=== PATIENT | male | born 1980 | race Caucasian/White ===

== ENCOUNTER 2018-02-25 08:24 | Emergency (ER) | payer MEDICAID, OTHER ==
--- NOTE | 2018-02-25 09:40 | CT ---
CT OF HEAD NONCONTRAST: INDICATION: Headache. COMPARISON: 05/07/16. FINDINGS: Moderate-sized region of left frontoparietal encephalomalacia is redemonstrated, with overlying left frontal craniotomy. There is ex vacuo dilatation of the left frontal horn. No intracranial hemorrha ge, mass effect, or midline shift. There is mild scattered white matter hypoattenuation indicating g liosis. There is decreased pneumatization of the right mastoid air cells. IMPRESSION: 1. No acute intracranial hemorrhage or mass effect. 2. Grossly stable chronic findings as discussed above. POS: [facility]
[2018-02-25] MEDS ORDERED: Metoclopramide HCl 10 MG/2 ML VIAL ONE (09:43)
[2018-02-25] MEDS ORDERED: diphenhydrAMINE 50 MG/ML VIAL ONE (09:43)
[2018-02-25] MEDS ORDERED: Ketorolac Tromethamine 30 MG/ML VIAL ONE (10:41)
== END 2018-02-25 10:49 | disposition home or self-care (01) ==
LOC: ERS 08:24
DX: R51 Headache (principal); F32.9 Major depressive disorder, single episode, unspecified; F17.210 Nicotine dependence, cigarettes, uncomplicated; Z86.73 Personal history of transient ischemic attack (TIA), and cerebral infarction without residual deficits; Z79.899 Other long term (current) drug therapy
CPT/HCPCS: 70450; 96365; 96375; J1200; J1885; J2765

== ENCOUNTER 2018-03-25 13:22 | Emergency (ER) | payer OTHER ==
[2018-03-25] MEDS ORDERED: Acetaminophen 500 MG TAB ONE (14:06)
[2018-03-25] MEDS ORDERED: Metoclopramide HCl 10 MG/2 ML VIAL ONE (14:06)
[2018-03-25] MEDS ORDERED: diphenhydrAMINE 50 MG/ML VIAL ONE (14:06)
--- NOTE | 2018-03-25 14:41 | CT ---
NONCONTRAST HEAD CT: Date: 03/25/18 HISTORY: Headache. COMPARISON: 02/25/18. TECHNIQUE: A noncontrast head CT is performed from the skull base to the skull vertex. FINDINGS: No parenchymal hemorrhage or extra-axial hematoma. No midline shift. Basilar cisterns are patent. Sta ble malacic and gliotic change involving the left frontal lobe with a associated ex vacuo dilatation of the frontal horn of the left lateral ventricle. Stable changes involving the left frontal calvariu m and left temporal calvarium. Adequate aeration of the sinuses and mastoid air cells. IMPRESSION: No acute intracranial process. POS: [facility]
--- NOTE | 2018-03-28 14:42 | EKG ---
Test Reason : Blood Pressure : / mmHG Vent. Rate : 052 BPM Atrial Rate : 052 BPM P-R Int : 146 ms QRS Dur : 088 ms QT Int : 412 ms P-R-T Axes : 022 035 041 degrees QTc Int : 383 ms Sinus bradycardia with marked sinus arrhythmia Otherwise normal ECG Confirmed by SEAMUS MACHUCA, ISHAAN Sandoval ([id number]), medical transcription editor STEVEN MCCULLOUGH ([id number]) on 03/28/2018 2:42:18 PM Referred By: Confirmed By:ISHAAN WAY MD
== END 2018-03-25 16:32 | disposition home or self-care (01) ==
LOC: ERS 13:22
DX: R51 Headache (principal); G89.29 Other chronic pain; F32.9 Major depressive disorder, single episode, unspecified; Z79.899 Other long term (current) drug therapy
CPT/HCPCS: 70450; 93005; 96365; 96366; 96375; J1200; J2765

== ENCOUNTER 2018-06-22 10:47 | Emergency (ER) | payer OTHER ==
[2018-06-22] MEDS ORDERED: Ketorolac Tromethamine 60 MG/2 ML VIAL ONE (11:04)
[2018-06-22] MEDS ORDERED: Dexamethasone 10 MG/ML VIAL ONE (11:04)
[2018-06-22] MEDS ORDERED: Diazepam 5 MG TAB ONE (11:04)
== END 2018-06-22 11:19 | disposition home or self-care (01) ==
LOC: ERS 10:47
DX: M54.5 Low back pain (principal); I72.9 Aneurysm of unspecified site; F32.9 Major depressive disorder, single episode, unspecified; F17.210 Nicotine dependence, cigarettes, uncomplicated; Z86.73 Personal history of transient ischemic attack (TIA), and cerebral infarction without residual deficits; Z79.899 Other long term (current) drug therapy
CPT/HCPCS: 96372; J1100; J1885

== ENCOUNTER 2018-09-15 08:31 | Emergency (ER) | payer OTHER | END 2018-09-15 09:45 | disposition left against medical advice (07) | LOC: ERS 08:31 | DX: Z53.21 Procedure and treatment not carried out due to patient leaving prior to being seen by health care provider (principal) ==

== ENCOUNTER 2018-09-27 23:59 | Emergency (ER) | payer OTHER ==
[2018-09-28] MEDS ORDERED: Lidocaine 1% w/Epinephrine 1:100K 20 ML VIAL ONE (02:01)
[2018-09-28] MEDS ORDERED: Ibuprofen 800 MG TAB ONE (02:01)
== END 2018-09-28 02:24 | disposition home or self-care (01) ==
LOC: ERS 23:59
DX: L02.412 Cutaneous abscess of left axilla (principal); I72.9 Aneurysm of unspecified site; F32.9 Major depressive disorder, single episode, unspecified; F17.210 Nicotine dependence, cigarettes, uncomplicated
CPT/HCPCS: 10061; J2001

== ENCOUNTER 2018-10-11 08:57 | Emergency (ER) | payer OTHER ==
[2018-10-11] MEDS ORDERED: Lidocaine 1% PF 5 ML VIAL ONE (09:19)
== END 2018-10-11 09:45 | disposition home or self-care (01) ==
LOC: ERS 08:57
DX: L02.412 Cutaneous abscess of left axilla (principal); Z86.73 Personal history of transient ischemic attack (TIA), and cerebral infarction without residual deficits; F32.9 Major depressive disorder, single episode, unspecified; F17.210 Nicotine dependence, cigarettes, uncomplicated; Z79.899 Other long term (current) drug therapy
CPT/HCPCS: 10061; J2001

== ENCOUNTER 2018-10-26 18:06 | Emergency (ER) | payer OTHER ==
[2018-10-26] MEDS ORDERED: Metoclopramide HCl 10 MG/2 ML VIAL ONE (19:00)
[2018-10-26] MEDS ORDERED: Ketorolac Tromethamine 60 MG/2 ML VIAL ONE (19:00)
[2018-10-26] MEDS ORDERED: diphenhydrAMINE 50 MG/ML VIAL ONE (19:00)
[2018-10-26] MEDS ORDERED: Acetaminophen 500 MG TAB ONE (19:00)
--- NOTE | 2018-10-26 19:45 | CT ---
CT HEAD NONCONTRAST: History: Headache. Comparison: 03-25-18 FINDINGS: There is no evidence of acute intracranial hemorrhage or infarct. Post-operative changes of the left frontal calvarium with underlying encephalomalacia are similar in appearance to the prior exam. No ma ss effect or shift of midline structures. Visualized paranasal sinuses remain well aerated. IMPRESSION: Chronic type findings are stable. No acute intracranial abnormalities are demonstrated. POS: [facility]
--- NOTE | 2018-10-31 21:01 | EKG ---
Test Reason : Blood Pressure : / mmHG Vent. Rate : 069 BPM Atrial Rate : 069 BPM P-R Int : 138 ms QRS Dur : 086 ms QT Int : 366 ms P-R-T Axes : 022 031 025 degrees QTc Int : 392 ms Normal sinus rhythm ST elevation, consider early repolarization Borderline ECG Similar to 07-JUL-2014 Confirmed by RYAN HERNANDEZ DO ([id number]), newspaper copy editor STEVEN MCCULLOUGH ([id number]) on 10/31/2018 9:00:34 PM Referred By: Confirmed By:RYAN HERNANDEZ DO
== END 2018-10-26 20:14 | disposition home or self-care (01) ==
LOC: ERS 18:06
DX: R51 Headache (principal); Z86.73 Personal history of transient ischemic attack (TIA), and cerebral infarction without residual deficits; F32.9 Major depressive disorder, single episode, unspecified; F17.210 Nicotine dependence, cigarettes, uncomplicated; Z79.899 Other long term (current) drug therapy
CPT/HCPCS: 70450; 93005; 94760; 96365; 96375; J1200; J1885; J2765

== ENCOUNTER 2019-03-21 21:19 | Emergency (ER) | payer OTHER ==
--- NOTE | 2019-03-21 21:58 | CT ---
CT BRAIN NONCONTRAST: DATE: 03/21/2019 9:40 PM HISTORY: 39-year-old male with altered mental status. COMPARISON: 10/26/2018 FINDINGS: Moderately large left frontal lobe region of encephalomalacia and gliosis, with associated ex vacuo d ilation of anterior portion of left lateral ventricle, including frontal horn. Overlying left frontotemporal parietal old craniotomy changes. Mild right to left midline shift on extra-axial basis. No mass effect, midline shift, obstructive hyd rocephalus, acute intra-axial hemorrhage, or extra-axial fluid collection. Visualized portions of paranasal sinuses are grossly clear. No interval change overall. IMPRESSION: 1. 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 2. No acute intracranial findings.
[2019-03-21 22:00] LABS: #Basophils 0.2 thou/uL (0.0-0.2); #Eosinphils 0.3 thou/uL (0.0-0.7); #Lymphocytes 4.6 thou/uL (1.20-3.40); #Monocytes 0.8 thou/uL (0.11-0.59); #Neutrophils 5.7 thou/uL (1.40-6.50); %Basophils 1.4 % (0.0-1.0); %Eosinophils 2.3 % (0.0-10.0); %Lymphocytes 39.6 % (21.0-51.0); %Monocytes 7.2 % (0.0-10.0); %Neutrophils 49.5 % (42.0-75.0); Hemoglobin 13.5 g/dL (14.0-18.0); Mean Corpuscular HGB CONC 33.7 g/dL (32.0-36.0); Mean Corpuscular Hemoglobin 30.8 pg (27.0-31.0); Mean Corpuscular Volume 91.5 fL (78.0-98.0); Mean Platelet Volume 7.7 fL (7.4-10.4); Platelet Count 336 thou/uL (130-400); RBC Distribution Width 11.4 % (11.5-14.5); Red Blood Cell (RBC) Count 4.38 mill/uL (4.70-6.10); White Blood Cell (WBC) Count 11.6 thou/uL (4.8-10.8)
[2019-03-21 22:21] LABS: ALT (SGPT) Less than 7 U/L (8-55); AST (SGOT) 10 U/L (5-34); Albumin 4.3 g/dL (3.5-5.0); Alkaline Phosphatase 84 U/L (40-150); Anion Gap 12 mmol/L (10-20); BUN (Urea Nitrogen) 15 mg/dL (8.9-20.6); Bilirubin, Total 0.2 mg/dL (0.2-1.2); Calc. Creatinine Clearance 0 mL/min (70-130); Calcium 9.4 mg/dL (7.8-10.44); Carbon Dioxide 25 mmol/L (22-29); Chloride 106 mmol/L (98-107); Estimated GFR-MDRD Greater than 90; Globulin 2.7 g/dL (2.4-3.5); Glucose 126 mg/dL (70-105); Potassium 3.7 mmol/L (3.5-5.1); Sodium 139 mmol/L (136-145)
[2019-03-21 23:01] LABS: Cocaine Metabolite Screen Detected (NotDetected); Medtox Reader # READER 1
[2019-03-21 23:02] LABS: Amphetamine Detected (NotDetected); Barbiturates Screen Not Detected (NotDetected); Benzodiazepine Screen Not Detected (NotDetected); Medtox Control Line Valid? VALID (VALID); Methadone Not Detected (NotDetected); Methamphetamine Not Detected (NotDetected); Opiate Screen Not Detected (NotDetected); Oxycodone Screen Not Detected (NotDetected); Phencyclidine (PCP) Not Detected (NotDetected); THC/Cannabinoid Screen Not Detected (NotDetected); Tricyclic Screen Not Detected (NotDetected)
== END 2019-03-21 23:10 | disposition left against medical advice (07) ==
LOC: ERS 21:19
DX: R20.0 Anesthesia of skin (principal); F19.10 Other psychoactive substance abuse, uncomplicated; F17.210 Nicotine dependence, cigarettes, uncomplicated
CPT/HCPCS: 36415; 70450; 80053; 80306; 85025

== ENCOUNTER 2019-04-12 12:29 | Emergency (ER) | payer OTHER | END 2019-04-12 12:49 | disposition left against medical advice (07) | LOC: ERS 12:29 | DX: Z53.21 Procedure and treatment not carried out due to patient leaving prior to being seen by health care provider (principal) ==

== ENCOUNTER 2019-04-12 20:18 | Emergency (ER) | payer OTHER ==
[2019-04-12] MEDS ORDERED: Ketorolac Tromethamine 30 MG/ML VIAL ONE (20:53)
== END 2019-04-12 21:00 | disposition home or self-care (01) ==
LOC: ERS 20:18
DX: G89.18 Other acute postprocedural pain (principal); R10.9 Unspecified abdominal pain; R11.0 Nausea
CPT/HCPCS: 96374; J1885

== ENCOUNTER 2019-08-30 15:05 | Outpatient (CLI) | payer OTHER ==
--- NOTE | 2019-08-30 15:36 | RAD ---
LUMBAR SPINE 3 VIEWS: Date: 08/30/2019 Lateral view obtained with neutral flexion and extension. HISTORY: Lumbar pain. FINDINGS/IMPRESSION: Lumbar vertebra maintain normal height and alignment. Disc spaces are preserved. No evidence of spond ylolisthesis. Minimal degenerative osteophytes and mild facet hypertrophy noted. POS: [facility]
== END 2019-08-30 15:06 | disposition home or self-care (01) ==
LOC: RAD 15:05
PROVIDERS: ATTEND Nurse Practitioner Family
DX: M54.5 Low back pain (principal); M47.816 Spondylosis without myelopathy or radiculopathy, lumbar region; M25.78 Osteophyte, vertebrae
CPT/HCPCS: 72100

== ENCOUNTER 2019-09-12 22:46 | Emergency (ER) | payer OTHER ==
[2019-09-12 23:11] LABS: #Basophils 0.2 thou/uL (0.0-0.2); #Eosinphils 0.3 thou/uL (0.0-0.7); #Lymphocytes 3.5 thou/uL (1.20-3.40); #Neutrophils 6.8 thou/uL (1.40-6.50); %Basophils 1.4 % (0.0-1.0); %Eosinophils 2.5 % (0.0-10.0); %Lymphocytes 29.4 % (21.0-51.0); %Monocytes 8.6 % (0.0-10.0); %Neutrophils 58.1 % (42.0-75.0); Hemoglobin 13.6 g/dL (14.0-18.0); Mean Corpuscular HGB CONC 32.8 g/dL (32.0-36.0); Mean Corpuscular Hemoglobin 30.2 pg (27.0-31.0); Mean Platelet Volume 7.4 fL (7.4-10.4); Platelet Count 290 thou/uL (130-400); RBC Distribution Width 12.1 % (11.5-14.5); Red Blood Cell (RBC) Count 4.52 mill/uL (4.70-6.10); White Blood Cell (WBC) Count 11.7 thou/uL (4.8-10.8)
--- NOTE | 2019-09-12 23:23 | CT ---
CT BRAIN WITHOUT CONTRAST: HISTORY: Altered mental status FINDINGS: Moderately large left frontal lobe region of encephalomalacia and gliosis, with associated ex vacuo d ilation of anterior portion of left lateral ventricle, including frontal horn. Overlying left frontotemporal parietal old craniotomy changes. Mild right to left midline shift on extra-axial basis . No mass effect, midline shift, obstructive hydrocephalus, acute intra-axial hemorrhage, or extra-axial fluid collection. Visualized portions of paranasal sinuses are grossly clear. No interval change overall. IMPRESSION: No CT evidence of acute intracranial process.
[2019-09-12 23:36] LABS: Acetaminophen Less than 6.0 mcg/mL (10.0-30.0); Alcohol Less than 10 mg/dL (Less than 10); Salicylate Less than 8.0 mg/dL (15.0-30.0)
[2019-09-12 23:37] LABS: ALT (SGPT) 10 U/L (8-55); AST (SGOT) 15 U/L (5-34); Albumin 4.3 g/dL (3.5-5.0); Alkaline Phosphatase 76 U/L (40-110); Anion Gap 11 mmol/L (10-20); BUN (Urea Nitrogen) 16 mg/dL (8.9-20.6); Bilirubin, Total 0.2 mg/dL (0.2-1.2); Calc. Creatinine Clearance 0 mL/min (70-130); Calcium 9.3 mg/dL (7.8-10.44); Carbon Dioxide 28 mmol/L (22-29); Chloride 103 mmol/L (98-107); Estimated GFR-MDRD Greater than 90; Globulin 2.9 g/dL (2.4-3.5); Glucose 89 mg/dL (70-105); Potassium 3.5 mmol/L (3.5-5.1); Protein, Total 7.2 g/dL (6.0-8.3); Sodium 138 mmol/L (136-145)
[2019-09-13 00:08] LABS: Amphetamine Not Detected (NotDetected); Barbiturates Screen Not Detected (NotDetected); Benzodiazepine Screen Not Detected (NotDetected); Cocaine Metabolite Screen Not Detected (NotDetected); Medtox Control Line Valid? VALID (VALID); Medtox Reader # READER 1; Methadone Not Detected (NotDetected); Methamphetamine Not Detected (NotDetected); Opiate Screen Not Detected (NotDetected); Oxycodone Screen Not Detected (NotDetected); Phencyclidine (PCP) Not Detected (NotDetected); THC/Cannabinoid Screen Not Detected (NotDetected); Tricyclic Screen Detected (NotDetected)
[2019-09-13 00:24] LABS: Bilirubin Negative (Negative); Blood, Urine Negative (Negative); Clarity Clear (Clear); Glucose, Urine (Dipstick) Normal (Negative); Leukocyte Negative Leu/uL (Negative); Nitrite Negative (Negative); Protein, Urine (Dipstick) Negative (Neg-Trace); Urobilinogen Normal mg/dL (Less than 2)
== END 2019-09-13 00:45 | disposition home or self-care (01) ==
LOC: ERS 22:46
DX: R41.82 Altered mental status, unspecified (principal); F17.210 Nicotine dependence, cigarettes, uncomplicated
CPT/HCPCS: 36415; 70450; 80053; 80306; 80307; 81003; 84443; 84484; 85025; 93005

== ENCOUNTER 2019-12-30 17:31 | Emergency (ER) | payer OTHER ==
[~2019-12-30 17:31] MED LIST: Iopamidol-370 76% 500 ML 1 ML ONE
[2019-12-30] MEDS ORDERED: Metoclopramide HCl 10 MG/2 ML VIAL ONE (17:54)
[2019-12-30] MEDS ORDERED: diphenhydrAMINE 50 MG/ML VIAL ONE (17:55)
[2019-12-30 18:04] LABS: Hemoglobin 14.2 g/dL (14.0-18.0); Mean Corpuscular HGB CONC 31.3 g/dL (32.0-36.0); Mean Corpuscular Hemoglobin 30.1 pg (27.0-31.0); Mean Corpuscular Volume 96.2 fL (78.0-98.0); Mean Platelet Volume 8.1 fL (7.4-10.4); Platelet Count 348 thou/uL (130-400); RBC Distribution Width 12.2 % (11.5-14.5); White Blood Cell (WBC) Count 20.2 thou/uL (4.8-10.8)
[2019-12-30 18:22] LABS: Band 3 % (5-11); Eosinophils 1 % (0-10); Lymphocytes 36 % (21-51); MDiff Complete? YES; Monocytes 8 % (0-10); Neutrophil 51 % (42-75); Platelet Morphology Comment Appears Adequate; RBC Morphology Normal; Reactive Lymphocytes 1 % (0-10)
--- NOTE | 2019-12-30 18:37 | CT ---
CT angiogram head: 12/30/2019 COMPARISON: 09/07/2013 HISTORY: Prior history of intracranial aneurysm, current complaint of headache TECHNIQUE: Axial CT imaging at 1.25 mm intervals from vertex through skull base with IV contrast usin g CT angiogram protocol with coronal and sagittal 3-D reformatted imaging FINDINGS: Imaged paranasal sinuses and mastoid air cells well-aerated. Stable left frontal craniotomy changes. Stable left frontal encephalomalacia. Distal right vertebral artery is hypoplastic and patent. Dominant left vertebral artery demonstrating distal patency. Basilar artery and its branches are patent with no saccular aneurysm, high-grade stenosis, or vascular occlusion involving the posterior circulation. The M1 segment, MCA bifurcation, A1 segment, distal NEIL branches, and distal MCA branches appear penny sly unremarkable. No saccular aneurysm, high-grade stenosis, or vascular occlusion of the anterior circulation. IMPRESSION: Stable CT angiogram of the head-no acute findings.
[2019-12-30 20:11] LABS: ALT (SGPT) 35 U/L (8-55); AST (SGOT) 41 U/L (5-34); Albumin 4.6 g/dL (3.5-5.0); Alkaline Phosphatase 67 U/L (40-110); Anion Gap 12 mmol/L (10-20); BUN (Urea Nitrogen) 11 mg/dL (8.9-20.6); Bilirubin, Total 0.2 mg/dL (0.2-1.2); Calc. Creatinine Clearance 0 mL/min (70-130); Carbon Dioxide 30 mmol/L (22-29); Chloride 103 mmol/L (98-107); Estimated GFR-MDRD 83; Globulin 2.9 g/dL (2.4-3.5); Glucose 95 mg/dL (70-105); Potassium 3.8 mmol/L (3.5-5.1); Protein, Total 7.5 g/dL (6.0-8.3); Sodium 141 mmol/L (136-145)
--- NOTE | 2019-12-30 20:25 | CT ---
CT OF BRAIN PERFORMED WITHOUT CONTRAST ENHANCEMENT: 12/30/19 HISTORY: Patient has history of a brain aneurysm now with severe headache. COMPARISON: 09/12/19 exam. There is postoperative changes with left frontal craniotomy change and underlying enceph alomalacia change with ex vacuo dilatation of the frontal horn of the left lateral ventricle. There i s no hemorrhage or mass effect. Mastoid air cells and visualized sinuses are clear. IMPRESSION: No acute intracranial abnormalities. POS: [facility]
[2019-12-30 20:28] LABS: Amphetamine Not Detected (NotDetected); Barbiturates Screen Detected (NotDetected); Benzodiazepine Screen Not Detected (NotDetected); Cocaine Metabolite Screen Not Detected (NotDetected); Medtox Control Line Valid? VALID (VALID); Medtox Reader # READER 4; Methadone Not Detected (NotDetected); Methamphetamine Not Detected (NotDetected); Opiate Screen Not Detected (NotDetected); Oxycodone Screen Not Detected (NotDetected); Phencyclidine (PCP) Not Detected (NotDetected); THC/Cannabinoid Screen Detected (NotDetected); Tricyclic Screen Not Detected (NotDetected)
== END 2019-12-30 20:58 | disposition home or self-care (01) ==
LOC: ERS 17:31
DX: R51 Headache (principal); R11.2 Nausea with vomiting, unspecified; F17.210 Nicotine dependence, cigarettes, uncomplicated; G43.909 Migraine, unspecified, not intractable, without status migrainosus; Z79.899 Other long term (current) drug therapy
CPT/HCPCS: 70450; 70496; 80053; 80306; 85025; 85652; 86140; 96361; 96374; 96375; J1200; J2765; Q9967

== ENCOUNTER 2020-01-06 03:05 | Emergency (ER) | payer OTHER ==
[2020-01-06] MEDS ORDERED: diphenhydrAMINE 50 MG/ML VIAL ONE (03:24)
[2020-01-06] MEDS ORDERED: Metoclopramide HCl 10 MG/2 ML VIAL ONE (03:24)
== END 2020-01-06 04:41 | disposition home or self-care (01) ==
LOC: ERS 03:05
DX: R51 Headache (principal); F17.210 Nicotine dependence, cigarettes, uncomplicated; Z79.899 Other long term (current) drug therapy
CPT/HCPCS: 96365; 96375; J1200; J2765

== ENCOUNTER 2020-01-10 03:00 | Emergency (ER) | payer OTHER ==
[2020-01-10] MEDS ORDERED: Ketorolac Tromethamine 30 MG/ML VIAL ONE (03:38)
[2020-01-10] MEDS ORDERED: Metoclopramide HCl 10 MG/2 ML VIAL ONE (03:38)
== END 2020-01-10 05:11 | disposition home or self-care (01) ==
LOC: ERS 03:00
DX: G43.909 Migraine, unspecified, not intractable, without status migrainosus (principal); F17.210 Nicotine dependence, cigarettes, uncomplicated; Z79.899 Other long term (current) drug therapy
CPT/HCPCS: 96365; 96375; J1885; J2765

== ENCOUNTER 2020-04-23 10:37 | Emergency (ER) | payer OTHER ==
[2020-04-23] MEDS ORDERED: Ketorolac Tromethamine 30 MG/ML VIAL ONE (13:25)
== END 2020-04-23 14:26 | disposition home or self-care (01) ==
LOC: ERS 10:37
DX: M54.5 Low back pain (principal); G43.909 Migraine, unspecified, not intractable, without status migrainosus; Z87.891 Personal history of nicotine dependence; Z79.899 Other long term (current) drug therapy; X50.9XXA Other and unspecified overexertion or strenuous movements or postures, initial encounter; Y92.009 Unspecified place in unspecified non-institutional (private) residence as the place of occurrence of the external cause
CPT/HCPCS: 96372; 99283; J1885

== ENCOUNTER 2021-03-26 10:45 | Emergency (ER) | payer OTHER ==
[2021-03-26] MEDS ORDERED: Ketorolac Tromethamine 30 MG/ML VIAL ONE ×2 (11:41)
== END 2021-03-26 12:16 | disposition home or self-care (01) ==
LOC: ERS 10:45
DX: M54.5 Low back pain (principal); M79.651 Pain in right thigh; F17.210 Nicotine dependence, cigarettes, uncomplicated
CPT/HCPCS: 96372; 99283; J1885

== ENCOUNTER 2021-06-08 03:56 | Emergency (ER) | payer OTHER ==
[2021-06-08] MEDS ORDERED: Metoclopramide 10 MG/10 ML UDCUP ONE (04:13)
[2021-06-08] MEDS ORDERED: Dexamethasone 10 MG/ML VIAL ONE (04:13)
[2021-06-08] MEDS ORDERED: Ketorolac Tromethamine 30 MG/ML VIAL ONE (04:13)
[2021-06-08] MEDS ORDERED: Metoclopramide HCl 10 MG/2 ML VIAL ONE (04:14)
== END 2021-06-08 05:15 | disposition home or self-care (01) ==
LOC: ERS 03:56
DX: G43.909 Migraine, unspecified, not intractable, without status migrainosus (principal); F17.200 Nicotine dependence, unspecified, uncomplicated; R56.9 Unspecified convulsions; Z79.899 Other long term (current) drug therapy
CPT/HCPCS: 96374; 96375; J1100; J1885; J2765

== ENCOUNTER 2021-06-12 03:50 | Emergency (ER) | payer OTHER ==
[2021-06-12] MEDS ORDERED: diphenhydrAMINE 50 MG/ML VIAL ONE (04:04)
[2021-06-12] MEDS ORDERED: Acetaminophen 500 MG TAB ONE (04:04)
[2021-06-12] MEDS ORDERED: Metoclopramide HCl 10 MG/2 ML VIAL ONE (04:04)
[2021-06-12] MEDS ORDERED: Ketorolac Tromethamine 30 MG/ML VIAL ONE (04:04)
== END 2021-06-12 05:10 | disposition home or self-care (01) ==
LOC: ERS 03:50
DX: R51.9 Headache, unspecified (principal); F17.200 Nicotine dependence, unspecified, uncomplicated; Z79.899 Other long term (current) drug therapy
CPT/HCPCS: 96374; 96375; J1200; J1885; J2765

== ENCOUNTER 2021-06-15 02:21 | Emergency (ER) | payer OTHER ==
[2021-06-15 03:01] LABS: #Basophils 0.1 thou/uL (0.0-0.2); #Eosinphils 0.2 thou/uL (0.0-0.7); #Lymphocytes 3.4 thou/uL (1.20-3.40); #Monocytes 1.5 thou/uL (0.11-0.59); #Neutrophils 12.8 thou/uL (1.40-6.50); %Basophils 0.6 % (0.0-1.0); %Lymphocytes 18.9 % (21.0-51.0); %Monocytes 8.4 % (0.0-10.0); %Neutrophils 71.1 % (42.0-75.0); Hemoglobin 14.6 g/dL (14.0-18.0); Mean Corpuscular HGB CONC 32.1 g/dL (32.0-36.0); Mean Corpuscular Hemoglobin 28.4 pg (27.0-31.0); Mean Corpuscular Volume 88.6 fL (78.0-98.0); Platelet Count 355 thou/uL (130-400); RBC Distribution Width 15.6 % (11.5-14.5); Red Blood Cell (RBC) Count 5.15 mill/uL (4.70-6.10)
[2021-06-15 03:21] LABS: ALT (SGPT) 29 U/L (8-55); AST (SGOT) 26 U/L (5-34); Albumin 4.2 g/dL (3.5-5.0); Alkaline Phosphatase 77 U/L (40-110); Anion Gap 12 mmol/L (10-20); BUN (Urea Nitrogen) 8 mg/dL (8.9-20.6); Bilirubin, Total 0.2 mg/dL (0.2-1.2); Calc. Creatinine Clearance 0 mL/min (70-130); Calcium 9.4 mg/dL (7.8-10.44); Carbon Dioxide 25 mmol/L (22-29); Chloride 104 mmol/L (98-107); Globulin 3.4 g/dL (2.4-3.5); Glucose 109 mg/dL (70-105); Potassium 3.5 mmol/L (3.5-5.1); Protein, Total 7.6 g/dL (6.0-8.3); Sodium 137 mmol/L (136-145)
== END 2021-06-15 02:50 | disposition left against medical advice (07) ==
LOC: ERS 02:21
DX: R51.9 Headache, unspecified (principal); F17.210 Nicotine dependence, cigarettes, uncomplicated
CPT/HCPCS: 80053; 85025; 99283

== ENCOUNTER 2021-07-06 15:47 | Emergency (ER) | payer OTHER ==
[2021-07-06] MEDS ORDERED: Acetaminophen 500 MG TAB ONE (17:49)
[2021-07-06] MEDS ORDERED: Ketorolac Tromethamine 30 MG/ML VIAL ONE (17:49)
[2021-07-06] MEDS ORDERED: Prochlorperazine 10 MG/2 ML VIAL ONE (17:49)
[2021-07-06] MEDS ORDERED: diphenhydrAMINE 50 MG/ML VIAL ONE (17:49)
== END 2021-07-06 19:53 | disposition home or self-care (01) ==
LOC: ERS 15:47
DX: G43.909 Migraine, unspecified, not intractable, without status migrainosus (principal); F17.210 Nicotine dependence, cigarettes, uncomplicated
CPT/HCPCS: 96365; 96375; J0780; J1200; J1885

== ENCOUNTER 2021-11-09 07:36 | Observation (INO) | payer OTHER ==
[2021-11-09] MEDS ORDERED: Fentanyl 100 MCG/2 ML VIAL ONE (07:53)
[2021-11-09] MEDS ORDERED: diphenhydrAMINE 50 MG/ML VIAL ONE (07:53)
[2021-11-09] MEDS ORDERED: Metoclopramide HCl 10 MG/2 ML VIAL ONE (07:53)
[2021-11-09] MEDS ORDERED: Dexamethasone 10 MG/ML VIAL ONE (07:53)
[2021-11-09] MEDS ORDERED: Ketorolac Tromethamine 30 MG/ML VIAL ONE (07:56)
[2021-11-09 08:14] LABS: Hemoglobin 14.4 g/dL (14.0-18.0); Mean Corpuscular HGB CONC 32.1 g/dL (32.0-36.0); Mean Corpuscular Hemoglobin 32.6 pg (27.0-31.0); Platelet Count 543 thou/uL (130-400); RBC Distribution Width 12.7 % (11.5-14.5); Red Blood Cell (RBC) Count 4.42 mill/uL (4.70-6.10); White Blood Cell (WBC) Count 15.3 thou/uL (4.8-10.8)
[2021-11-09 08:29] LABS: ALT (SGPT) 13 U/L (8-55); AST (SGOT) 17 U/L (5-34); Albumin 4.7 g/dL (3.5-5.0); Alkaline Phosphatase 72 U/L (40-110); Anion Gap 16 mmol/L (10-20); BUN (Urea Nitrogen) 6 mg/dL (8.9-20.6); Bilirubin, Total Less than 0.2 mg/dL (0.2-1.2); CK (CPK) 73 U/L (30-200); Calc. Creatinine Clearance 0 mL/min (70-130); Calcium 9.3 mg/dL (7.8-10.44); Carbon Dioxide 21 mmol/L (22-29); Chloride 108 mmol/L (98-107); Globulin 3.4 g/dL (2.4-3.5); Glucose 116 mg/dL (70-105); Potassium 3.6 mmol/L (3.5-5.1); Protein, Total 8.1 g/dL (6.0-8.3); Sodium 141 mmol/L (136-145)
[2021-11-09 08:30] LABS: Acetaminophen Less than 10.0 mcg/mL (10.0-30.0); Alcohol 66 mg/dL (Less than 10); Salicylate Less than 8.0 mg/dL (15.0-30.0)
[2021-11-09 08:31] LABS: MDiff Complete? YES
[2021-11-09 08:32] LABS: Eosinophils 1 % (0-10); Lymphocytes 33 % (21-51); Macrocytosis SLIGHT = 6-15 cells (100X) (0-5/hpf); Monocytes 6 % (0-10); Neutrophil 58 % (42-75); Platelet Morphology Comment Appears Increased; Polychromasia SLIGHT = 2-3 cells (100X) (0-2/hpf); Reactive Lymphocytes 2 % (0-10)
[2021-11-09 09:23] LABS: Bilirubin Negative (Negative); Blood, Urine Negative (Negative); Clarity Clear (Clear); Glucose, Urine (Dipstick) 150 mg/dL (Negative); Ketone, Urine Trace mg/dL (Negative); Leukocyte Negative Leu/uL (Negative); Nitrite Negative (Negative); Protein, Urine (Dipstick) 10 mg/dL (Neg-Trace); Specific Gravity, Urine 1.027 (1.002-1.036); Urobilinogen Normal mg/dL (Less than 2); pH, Urine 5.5 (5.0-9.0)
[2021-11-09] MEDS ORDERED: Magnesium 2 GM/50 ML BAG (IN WATER) ONE (09:49)
[2021-11-09] MEDS ORDERED: Ondansetron PF 4 MG/2 ML Vial IVP PRN (10:27)
[2021-11-09] MEDS ORDERED: Guaifenesin DM 100-10/5 ML UDCUP PO PRN (10:27)
[2021-11-09] MEDS ORDERED: Senokot S 8.6-50 MG TAB PO PRN (10:27)
[2021-11-09] MEDS ORDERED: Lorazepam 0.5 MG TAB PO PRN (10:54)
[2021-11-09] MEDS: Nicotine 14 MG PATCH TD SCH (12:13)
[2021-11-09] MEDS: Sodium Chloride 0.9% 1,000 ML IV SCH ×2 (12:14→23:31)
[2021-11-09] MEDS: HYDROcodone/Acetaminophen 5/325 mg Tablet PO PRN ×3 (12:17→22:49)
[2021-11-09] MEDS: Fioricet 325/50/40 mg Tablet PO PRN ×2 (16:14→20:08)
[2021-11-09 16:18] VITALS: BMI 23.0
[2021-11-09] MEDS: levETIRAcetam 500 MG TAB PO SCH (20:08)
[2021-11-10] MEDS: Sodium Chloride 0.9% 1,000 ML IV SCH (00:39)
[2021-11-10] MEDS: Fioricet 325/50/40 mg Tablet PO PRN ×3 (02:02→13:10)
[2021-11-10] MEDS ORDERED: Melatonin 3 MG TAB PO SCH (02:15)
[2021-11-10 06:31] LABS: Anion Gap 11 mmol/L (10-20); BUN (Urea Nitrogen) 10 mg/dL (8.9-20.6); Calc. Creatinine Clearance 151 mL/min (70-130); Carbon Dioxide 23 mmol/L (22-29); Chloride 105 mmol/L (98-107); Glucose 146 mg/dL (70-105); Potassium 3.7 mmol/L (3.5-5.1); Sodium 135 mmol/L (136-145)
[2021-11-10 06:43] LABS: Band 2 % (5-11); Hemoglobin 12.1 g/dL (14.0-18.0); Lymphocytes 12 % (21-51); MDiff Complete? YES; Mean Corpuscular HGB CONC 31.5 g/dL (32.0-36.0); Mean Corpuscular Hemoglobin 32.3 pg (27.0-31.0); Mean Platelet Volume 7.3 fL (7.4-10.4); Monocytes 3 % (0-10); Neutrophil 83 % (42-75); Platelet Count 405 thou/uL (130-400); RBC Distribution Width 12.5 % (11.5-14.5); Red Blood Cell (RBC) Count 3.73 mill/uL (4.70-6.10); White Blood Cell (WBC) Count 21.3 thou/uL (4.8-10.8)
[2021-11-10] MEDS: levETIRAcetam 500 MG TAB PO SCH (08:39)
[2021-11-10] MEDS ORDERED: Thiamine 100 MG TAB PO SCH (09:00)
[2021-11-10] MEDS ORDERED: Folic Acid 1 MG TAB PO SCH (09:00)
[2021-11-10] MEDS ORDERED: Multivitamin W/ Minerals 1 TAB PO SCH (09:00)
[2021-11-10] MEDS: HYDROcodone/Acetaminophen 5/325 mg Tablet PO PRN (11:47)
[2021-11-10] MEDS: Nicotine 14 MG PATCH TD SCH (11:49)
[2021-11-10 17:37] VITALS: BP 145/87; TEMP 98.1
== END 2021-11-10 16:15 | disposition home or self-care (01) ==
LOC: ERS 07:36 → SURG A 09:36
PROVIDERS: ADMIT Hospitalist; ATTEND Family Medicine
DX: R51.9 Headache, unspecified (principal); F17.210 Nicotine dependence, cigarettes, uncomplicated; F10.10 Alcohol abuse, uncomplicated; Z86.73 Personal history of transient ischemic attack (TIA), and cerebral infarction without residual deficits; Y90.3 Blood alcohol level of 60-79 mg/100 ml
CPT/HCPCS: 36415; 80048; 80053; 80307; 81003; 82550; 85025; 96365; 96375; G0378; J1100; J1200; J1885; J2765; J3010; J3475; J7050

== ENCOUNTER 2021-12-05 16:04 | Outpatient (CLI) | payer OTHER | END 2021-12-05 16:05 | disposition home or self-care (01) | LOC: BICCT 16:04 | PROVIDERS: ATTEND Psychiatry & Neurology Neurology | DX: Q27.30 Arteriovenous malformation, site unspecified (principal); Z98.890 Other specified postprocedural states | CPT/HCPCS: 70450 ==

== ENCOUNTER 2022-03-24 13:45 | Emergency (ER) | payer OTHER ==
[2022-03-24 14:13] LABS: Hemoglobin 14.8 g/dL (14.0-18.0); Mean Corpuscular HGB CONC 31.6 g/dL (32.0-36.0); Mean Corpuscular Hemoglobin 31.2 pg (27.0-31.0); Mean Corpuscular Volume 98.6 fL (78.0-98.0); Mean Platelet Volume 8.5 fL (7.4-10.4); Platelet Count 378 thou/uL (130-400); RBC Distribution Width 12.6 % (11.5-14.5); Red Blood Cell (RBC) Count 4.77 mill/uL (4.70-6.10); White Blood Cell (WBC) Count 20.5 thou/uL (4.8-10.8)
[2022-03-24] MEDS ORDERED: levETIRAcetam 500 MG/5 ML VIAL ONE (14:15)
[2022-03-24 14:31] LABS: Band 5 % (5-11); Lymphocytes 20 % (21-51); MDiff Complete? YES; Macrocytosis SLIGHT = 6-15 cells (100X) (0-5/hpf); Monocytes 7 % (0-10); Neutrophil 68 % (42-75); Platelet Morphology Comment Appears Adequate; Polychromasia SLIGHT = 2-3 cells (100X) (0-2/hpf)
[2022-03-24 14:49] LABS: ALT (SGPT) 15 U/L (8-55); AST (SGOT) 37 U/L (5-34); Albumin 4.7 g/dL (3.5-5.0); Alkaline Phosphatase 91 U/L (40-110); Anion Gap 33 mmol/L (10-20); BUN (Urea Nitrogen) 10 mg/dL (8.9-20.6); Bilirubin, Total 0.4 mg/dL (0.2-1.2); Calc. Creatinine Clearance 0 mL/min (70-130); Calcium 9.6 mg/dL (7.8-10.44); Carbon Dioxide 9 mmol/L (22-29); Chloride 106 mmol/L (98-107); Estimated GFR 90; Globulin 3.7 g/dL (2.4-3.5); Glucose 132 mg/dL (70-105); Potassium 4.8 mmol/L (3.5-5.1); Protein, Total 8.4 g/dL (6.0-8.3); Sodium 143 mmol/L (136-145)
[2022-03-24 15:03] LABS: Bilirubin Negative (Negative); Blood, Urine 1+ (Negative); Clarity Clear (Clear); Glucose, Urine (Dipstick) Normal (Negative); Ketone, Urine 10 mg/dL (Negative); Leukocyte Negative Leu/uL (Negative); Nitrite Negative (Negative); Protein, Urine (Dipstick) 50 mg/dL (Neg-Trace); RBC/HPF 0-3 HPF (0-3); Specific Gravity, Urine 1.015 (1.002-1.036); Squamous Epithelial None Seen HPF (0-3); Urobilinogen Normal mg/dL (Less than 2); WBC/HPF 0-3 HPF (0-3); pH, Urine 5.5 (5.0-9.0)
[2022-03-24 15:04] LABS: Bacteria/HPF Rare-Few HPF (None Seen)
[2022-03-24 15:09] LABS: Amphetamine Not Detected (NotDetected); Barbiturates Screen Not Detected (NotDetected); Benzodiazepine Screen Not Detected (NotDetected); Cocaine Metabolite Screen Detected (NotDetected); Methadone Not Detected (NotDetected); Methamphetamine Not Detected (NotDetected); Opiate Screen Not Detected (NotDetected); Oxycodone Screen Not Detected (NotDetected); Phencyclidine (PCP) Not Detected (NotDetected); THC/Cannabinoid Screen Detected (NotDetected); Tricyclic Screen Not Detected (NotDetected)
== END 2022-03-24 16:08 | disposition home or self-care (01) ==
LOC: ERS 13:45
DX: R56.9 Unspecified convulsions (principal); Z91.14 Patient's other noncompliance with medication regimen
CPT/HCPCS: 36416; 70450; 80053; 80177; 80306; 81003; 81015; 85025; 96365; J1953

== ENCOUNTER 2022-04-05 04:31 | Emergency (ER) | payer OTHER ==
[2022-04-05] MEDS ORDERED: levETIRAcetam 500 MG TAB PO SCH (05:00)
[2022-04-05 05:14] LABS: #Basophils 0.1 thou/uL (0.0-0.2); #Lymphocytes 2.5 thou/uL (1.20-3.40); #Monocytes 0.7 thou/uL (0.11-0.59); #Neutrophils 7.1 thou/uL (1.40-6.50); %Basophils 0.6 % (0.0-1.0); %Eosinophils 0.2 % (0.0-10.0); %Lymphocytes 24.3 % (21.0-51.0); %Monocytes 6.7 % (0.0-10.0); %Neutrophils 68.2 % (42.0-75.0); Hemoglobin 14.1 g/dL (14.0-18.0); Mean Corpuscular HGB CONC 31.6 g/dL (32.0-36.0); Mean Corpuscular Hemoglobin 30.4 pg (27.0-31.0); Mean Corpuscular Volume 96.2 fL (78.0-98.0); Mean Platelet Volume 7.4 fL (7.4-10.4); Platelet Count 336 thou/uL (130-400); RBC Distribution Width 12.7 % (11.5-14.5); Red Blood Cell (RBC) Count 4.64 mill/uL (4.70-6.10); White Blood Cell (WBC) Count 10.4 thou/uL (4.8-10.8)
[2022-04-05 05:35] LABS: ALT (SGPT) 18 U/L (8-55); AST (SGOT) 30 U/L (5-34); Albumin 4.6 g/dL (3.5-5.0); Alkaline Phosphatase 72 U/L (40-110); Anion Gap 17 mmol/L (10-20); BUN (Urea Nitrogen) 7 mg/dL (8.9-20.6); Bilirubin, Total 0.4 mg/dL (0.2-1.2); Calc. Creatinine Clearance 0 mL/min (70-130); Calcium 9.2 mg/dL (7.8-10.44); Carbon Dioxide 23 mmol/L (22-29); Chloride 106 mmol/L (98-107); Estimated GFR 112; Globulin 3.4 g/dL (2.4-3.5); Glucose 85 mg/dL (70-105); Potassium 3.7 mmol/L (3.5-5.1); Sodium 142 mmol/L (136-145)
== END 2022-04-05 05:50 | disposition home or self-care (01) ==
LOC: ERS 04:31
DX: G40.802 Other epilepsy, not intractable, without status epilepticus (principal); F17.210 Nicotine dependence, cigarettes, uncomplicated; Z79.899 Other long term (current) drug therapy
CPT/HCPCS: 36415; 80053; 85025; 93005

== ENCOUNTER 2022-07-25 13:30 | Emergency (ER) | payer OTHER ==
[2022-07-25 14:22] LABS: #Eosinphils 0.1 thou/uL (0.0-0.7); #Lymphocytes 2.4 thou/uL (1.20-3.40); #Neutrophils 9.1 thou/uL (1.40-6.50); %Basophils 0.2 % (0.0-1.0); %Eosinophils 0.4 % (0.0-10.0); %Lymphocytes 19.2 % (21.0-51.0); %Neutrophils 72.3 % (42.0-75.0); Hemoglobin 14.8 g/dL (14.0-18.0); Mean Corpuscular HGB CONC 31.5 g/dL (32.0-36.0); Mean Corpuscular Hemoglobin 29.6 pg (27.0-31.0); Mean Corpuscular Volume 93.9 fl (78.0-98.0); Mean Platelet Volume 8.2 fL (7.4-10.4); Platelet Count 359 10x3/uL (130-400); RBC Distribution Width 13.9 % (11.5-14.5); White Blood Cell (WBC) Count 12.6 10x3/uL (4.8-10.8)
[2022-07-25] MEDS ORDERED: Ketorolac Tromethamine 30 MG/ML VIAL ONE (14:39)
[2022-07-25 14:45] LABS: ALT (SGPT) 9 U/L (8-55); AST (SGOT) 16 U/L (5-34); Albumin 4.2 g/dL (3.5-5.0); Alkaline Phosphatase 67 U/L (40-110); Anion Gap 15 mmol/L (10-20); BUN (Urea Nitrogen) 8 mg/dL (8.9-20.6); Bilirubin, Total 0.3 mg/dL (0.2-1.2); Calc. Creatinine Clearance 0 mL/min (70-130); Calcium 9.2 mg/dL (7.8-10.44); Carbon Dioxide 23 mmol/L (22-29); Chloride 106 mmol/L (98-107); Estimated GFR 92; Glucose 104 mg/dL (70-105); Potassium 3.9 mmol/L (3.5-5.1); Protein, Total 7.2 g/dL (6.0-8.3); Sodium 140 mmol/L (136-145)
== END 2022-07-25 15:27 | disposition home or self-care (01) ==
LOC: ERS 13:30
DX: M79.602 Pain in left arm (principal); R07.9 Chest pain, unspecified; F17.210 Nicotine dependence, cigarettes, uncomplicated
CPT/HCPCS: 36415; 71045; 80053; 84484; 85025; 93005; 96372; J1885

== ENCOUNTER 2022-09-16 19:02 | Emergency (ER) | payer OTHER ==
[2022-09-16 19:53] LABS: #Basophils 0.2 thou/uL (0.0-0.2); #Eosinphils 0.1 thou/uL (0.0-0.7); #Lymphocytes 3.2 thou/uL (1.20-3.40); %Basophils 1.1 % (0.0-1.0); %Lymphocytes 23.9 % (21.0-51.0); %Monocytes 7.1 % (0.0-10.0); %Neutrophils 66.9 % (42.0-75.0); Hemoglobin 14.4 g/dL (14.0-18.0); Mean Corpuscular HGB CONC 33.2 g/dL (32.0-36.0); Mean Corpuscular Hemoglobin 30.6 pg (27.0-31.0); Mean Corpuscular Volume 92.2 fl (78.0-98.0); Mean Platelet Volume 8.4 fL (7.4-10.4); Platelet Count 308 10x3/uL (130-400); RBC Distribution Width 13.7 % (11.5-14.5); Red Blood Cell (RBC) Count 4.71 mill/uL (4.70-6.10); White Blood Cell (WBC) Count 13.5 10x3/uL (4.8-10.8)
[2022-09-16 20:16] LABS: ALT (SGPT) 9 U/L (8-55); AST (SGOT) 17 U/L (5-34); Alcohol 18 mg/dL (Less than 10); Alkaline Phosphatase 80 U/L (40-110); Anion Gap 17 mmol/L (10-20); BUN (Urea Nitrogen) 14 mg/dL (8.9-20.6); Bilirubin, Total 0.2 mg/dL (0.2-1.2); Calc. Creatinine Clearance 0 mL/min (70-130); Calcium 9.5 mg/dL (7.8-10.44); Carbon Dioxide 21 mmol/L (22-29); Chloride 107 mmol/L (98-107); Estimated GFR 111; Globulin 3.5 g/dL (2.4-3.5); Glucose 106 mg/dL (70-105); Protein, Total 7.5 g/dL (6.0-8.3); Sodium 141 mmol/L (136-145)
[2022-09-16 20:50] LABS: Bilirubin Negative (Negative); Blood, Urine Negative (Negative); Clarity Clear (Clear); Glucose, Urine (Dipstick) 100 mg/dL (Negative); Ketone, Urine Trace mg/dL (Negative); Leukocyte Negative Leu/uL (Negative); Nitrite Negative (Negative); Protein, Urine (Dipstick) Negative (Neg-Trace); Specific Gravity, Urine 1.024 (1.002-1.036); Urobilinogen Normal mg/dL (Less than 2); pH, Urine 5.5 (5.0-9.0)
[2022-09-16] MEDS ORDERED: Ketorolac Tromethamine 30 MG/ML VIAL ONE (22:25)
[2022-09-17 11:26] LABS: Chlam.trachomatis by PCR,Urine Not Detected (NotDetected); GC N.gonorrhoeae PCR,UrineVOID Not Detected (NotDetected)
== END 2022-09-16 23:10 | disposition home or self-care (01) ==
LOC: ERS 19:02
DX: R10.9 Unspecified abdominal pain (principal); F17.210 Nicotine dependence, cigarettes, uncomplicated
CPT/HCPCS: 36415; 71045; 80053; 80307; 81003; 84484; 85025; 87491; 87591; 93005; 96374; J1885

== ENCOUNTER 2022-09-22 16:57 | Emergency (ER) | payer OTHER ==
[2022-09-22 17:30] LABS: #Basophils 0.1 thou/uL (0.0-0.2); #Eosinphils 0.1 thou/uL (0.0-0.7); #Monocytes 0.9 thou/uL (0.11-0.59); #Neutrophils 7.1 thou/uL (1.40-6.50); %Basophils 0.6 % (0.0-1.0); %Eosinophils 0.6 % (0.0-10.0); %Lymphocytes 26.8 % (21.0-51.0); %Monocytes 7.9 % (0.0-10.0); %Neutrophils 64.1 % (42.0-75.0); Hemoglobin 14.3 g/dL (14.0-18.0); Mean Corpuscular Hemoglobin 29.9 pg (27.0-31.0); Mean Corpuscular Volume 93.5 fl (78.0-98.0); Mean Platelet Volume 7.5 fL (7.4-10.4); Platelet Count 302 10x3/uL (130-400); RBC Distribution Width 13.4 % (11.5-14.5); Red Blood Cell (RBC) Count 4.78 mill/uL (4.70-6.10); White Blood Cell (WBC) Count 11.1 10x3/uL (4.8-10.8)
[2022-09-22 17:36] LABS: Bilirubin Negative (Negative); Blood, Urine Negative (Negative); Clarity Clear (Clear); Glucose, Urine (Dipstick) Normal (Negative); Ketone, Urine Negative (Negative); Leukocyte Negative Leu/uL (Negative); Nitrite Negative (Negative); Protein, Urine (Dipstick) Negative (Neg-Trace); Specific Gravity, Urine 1.002 (1.002-1.036); Urobilinogen Normal mg/dL (Less than 2); pH, Urine 5.5 (5.0-9.0)
[2022-09-22 17:55] LABS: ALT (SGPT) 9 U/L (8-55); AST (SGOT) 16 U/L (5-34); Albumin 4.2 g/dL (3.5-5.0); Alkaline Phosphatase 71 U/L (40-110); Anion Gap 15 mmol/L (10-20); BUN (Urea Nitrogen) 10 mg/dL (8.9-20.6); Bilirubin, Total 0.2 mg/dL (0.2-1.2); Calc. Creatinine Clearance 0 mL/min (70-130); Calcium 9.5 mg/dL (7.8-10.44); Carbon Dioxide 20 mmol/L (22-29); Chloride 108 mmol/L (98-107); Estimated GFR 111; Globulin 2.8 g/dL (2.4-3.5); Glucose 83 mg/dL (70-105); Potassium 3.8 mmol/L (3.5-5.1); Sodium 139 mmol/L (136-145)
[2022-09-22] MEDS ORDERED: Ketorolac Tromethamine 30 MG/ML VIAL ONE ×2 (18:44)
== END 2022-09-22 19:00 | disposition home or self-care (01) ==
LOC: ERS 16:57
DX: G89.29 Other chronic pain (principal); M54.50 Low back pain, unspecified; F17.210 Nicotine dependence, cigarettes, uncomplicated; Z79.899 Other long term (current) drug therapy
CPT/HCPCS: 36415; 71045; 80053; 81003; 84484; 85025; 93005; 94760; 96374; J1885

== ENCOUNTER 2024-06-21 13:15 | Emergency (ER) | payer OTHER ==
[2024-06-21] MEDS ORDERED: levETIRAcetam 500 MG TAB ONE (13:50)
== END 2024-06-21 14:10 | disposition home or self-care (01) ==
LOC: ERS 13:15
DX: Z76.0 Encounter for issue of repeat prescription (principal); G40.909 Epilepsy, unspecified, not intractable, without status epilepticus; Z55.6 Problems related to health literacy; F17.210 Nicotine dependence, cigarettes, uncomplicated
CPT/HCPCS: 99283

== ENCOUNTER 2025-04-02 11:59 | Emergency (ER) | payer OTHER ==
[2025-04-02] MEDS ORDERED: levETIRAcetam 500 MG (5 mL) VIAL ONE (12:22)
[2025-04-02 12:36] LABS: #Basophils 0.04 10x3/uL (0.0-0.2); #Eosinophils Less than 0.03 10x3/uL (0.0-0.7); #Monocytes 0.71 10x3/uL (0.11-0.59); #Neutrophils 9.13 10x3/uL (1.40-6.50); %Basophils 0.3 % (0.0-1.0); %Eosinophils 0.2 % (0.0-10.0); %Lymphocytes 14.6 % (21.0-51.0); %Monocytes 6.1 % (0.0-10.0); %Neutrophils 78.1 % (42.0-75.0); Hematocrit 46.1 % (42.0-52.0); Hemoglobin 14.9 g/dL (14.0-18.0); Mean Corpuscular Hemoglobin 28.8 pg (27.0-31.0); Mean Corpuscular Volume 89.2 fL (78.0-98.0); Platelet Count 332 10x3/uL (130-400); Red Blood Cell (RBC) Count 5.17 mill/uL (4.70-6.10); White Blood Cell (WBC) Count 11.69 10x3/uL (4.8-10.8)
[2025-04-02 13:01] LABS: ALT (SGPT) 11 U/L (Less than 45); AST (SGOT) 19 U/L (11-34); Albumin 4.7 g/dL (3.1-4.5); Alkaline Phosphatase 65 U/L (40-110); Anion Gap 18 mmol/L (10-20); BUN (Urea Nitrogen) 14 mg/dL (8.9-20.6); Bilirubin, Total 0.4 mg/dL (0.3-1.2); Calc. Creatinine Clearance 0 mL/min (70-130); Calcium 9.5 mg/dL (7.8-10.44); Carbon Dioxide 18 mmol/L (22-29); Chloride 104 mmol/L (98-107); Globulin 3.3 g/dL (2.4-3.5); Glucose 123 mg/dL (70-105); Magnesium 2.1 mg/dL (1.6-2.6); Potassium 3.7 mmol/L (3.5-5.1); Sodium 136 mmol/L (136-145)
== END 2025-04-02 13:40 | disposition home or self-care (01) ==
LOC: ERS 11:59
DX: R56.9 Unspecified convulsions (principal); I10 Essential (primary) hypertension; F17.210 Nicotine dependence, cigarettes, uncomplicated; Z79.899 Other long term (current) drug therapy
CPT/HCPCS: 80053; 83735; 84484; 85025; 93005; 96365; J1953